=== PATIENT | male | born 1985 | race Caucasian/White ===

== ENCOUNTER → 2020-02-28 17:25 | Outpatient (CLI) | payer OTHER, SELFPAY ==
[2020-02-28 18:36] LABS: Basophils # 0.1 K/mm3 (0-0.2); Basophils % 0.8 % (0.1-2.0); Eosinophils # 0.2 K/mm3 (0.0-0.4); Eosinophils % 2.5 % (0.1-12.0); Hematocrit 49.6 % (42.0-52.0); Lymphocytes # 3.9 K/mm3 (0.7-4.5); Mean Corpuscular HGB Conc 36.2 g/dL (31.8-35.4); Mean Corpuscular Hemoglobin 34.5 pg (27.0-31.2); Mean Corpuscular Volume 95.1 fl (80-94); Monocytes # 0.6 K/mm3 (0.1-1.0); Monocytes % 6.3 % (1.7-9.3); Neutrophils # 5.1 K/mm3 (1.8-7.8); Neutrophils % 51.5 % (37.0-80.0); Platelet Count 305 K/mm3 (142-424); Red Blood Count 5.22 M/mm3 (4.60-6.20); Red Cell Distribution Width 12.9 % (11.5-17.5); White Blood Count 9.9 K/mm3 (4.8-10.8)
[2020-02-28 20:15] LABS: Alanine Aminotransferase 63 U/L (12-78); Albumin Level 4.6 g/dl (3.5-5.0); Albumin/Globulin Ratio 1.4 (1.1-1.8); Alkaline Phosphatase 74 U/L (38-126); Anion Gap 14.7 mEq/L (5-15); Aspartate Amino Transferase 35 U/L (17-59); Bilirubin,Total 0.5 mg/dl (0.2-1.3); Blood Urea Nitrogen 13 mg/dl (9-20); Calcium 9.9 mg/dl (8.4-10.2); Carbon Dioxide 27 mmol/L (22.0-30.0); Chloride 101 mmol/L (98-107); Chol/HDL Ratio 6.3 (1-3.5); Cholesterol 263 mg/dl (140-200); Estimated Glomerular Filt Rate 87 ml/min (>60); GFR (African American) 105 ML/MIN (>60); Globulin 3.4 g/dL (1.3-3.2); Glucose 89 mg/dl (74-100); HDL Cholesterol 42 mg/dl (40-60); Potassium 4.7 mmoL/L (3.5-5.1); Sodium 138 mmol/L (136-145); Triglycerides 354 mg/dl (30-150); VLDL Cholesterol 71 mg/dL (0-40)
[2020-02-28 20:26] LABS: Direct LDL Cholesterol 172.62 mg/dL (100-129)
[2020-02-28 20:32] LABS: 25-OH Vitamin D, Total 18.7 ng/mL (30-100)
[2020-02-28 20:33] LABS: Free T4 (Free Thyroxine) 0.99 ng/dl (0.78-2.19)
[2020-02-28 20:46] LABS: Thyroid Stimulating Hormone 3.37 uIU/mL (0.465-4.68)
== END ==
PROVIDERS: Visit Provider Physician Assistant
DX: Z00.00 Encounter for general adult medical examination without abnormal findings (principal); R53.83 Other fatigue; E55.9 Vitamin D deficiency, unspecified
CPT/HCPCS: 80053; 80061; 82306; 84439; 84443; 85025